=== PATIENT | male | born 1950 | race Caucasian/White ===

== ENCOUNTER 2017-12-29 12:49 | Outpatient (CLI) | payer MEDICARE | END 2017-12-29 12:50 | disposition home or self-care (01) | LOC: BICCT 12:49 | PROVIDERS: ATTEND Family Medicine | DX: R51 Headache (principal) | CPT/HCPCS: 70450 ==

== ENCOUNTER 2018-07-28 13:36 | Outpatient (CLI) | payer MEDICARE ==
--- NOTE | 2018-07-28 15:03 | MRI ---
FExam: MRI cervical spine without contrast HISTORY: Spondylosis, cervical region. Neck pain, times many years. COMPARISON: None FINDINGS: Appropriate T1 marrow signal intensity of the cervical vertebra. Cervical spine vertebral body heigh t is maintained. No fracture. No significant STIR hyperintensity to suggest vertebral body edema or l igamentous injury Visualized brain parenchyma, cervical medullary junction, cervical cord and the upper thoracic cord a re normal size and signal intensity C2-C3: No significant central canal stenosis or neural foraminal narrowing C3-C4: Minimal disc osteophyte complex. No significant central canal stenosis or neural foraminal ricardo rowing.. C4-C5: Broad-based disc osteophyte complex abuts the thecal sac. Mild deformity of the ventral thecal sac and ventral cord. Mild central canal stenosis. Mild right foraminal narrowing due to uncovertebr al hypertrophy. Left neural foramen is patent. C5-C6: Broad-based disc osteophyte complex with a central component. Ventral subarachnoid space is ef faced. Mild central canal stenosis. Bilateral uncovertebral hypertrophy result in mild to moderate ri ght and left foraminal narrowing. C6-C7: No significant central canal stenosis. Bilateral uncovertebral hypertrophy results in mild to moderate bilateral foraminal narrowing. C7-T1: No significant central canal stenosis or neural foraminal narrowing. T2 hyperintensities in th e right and left neural foramina likely represent perineural sleeve cysts. IMPRESSION: 1. Multilevel degenerative disc disease without high-grade central canal stenosis. 2. Multilevel neural foraminal narrowing as described above.
--- NOTE | 2018-07-28 16:16 | MRI ---
LUMBAR SPINE WITHOUT CONTRAST: 07/28/18 INDICATION: History of spondylosis of the lumbar spine with low back pain. COMPARISON: Prior CT lumbar spine dated 09/23/12. FINDINGS: There is postsurgical change of a laminectomy at L4. The visualized retroperitoneum and paravertebral soft tissues appear within normal limits. Bone marrow signal intensity appears within normal limits. There is moderate loss of normal disc spac e height at L4-5. There is mild loss of normal disc space heights at L3-4 and L5-S1. The conus seems to terminate at T12. At L5-S1, there is mild facet joint degenerative change but not appreciable central canal or neural f oraminal narrowing. At L4-5, there is a broad based disc osteophyte complex without appreciable central canal or neural f oraminal narrowing. At L3-4, there is a broad based disc bulge. The broad based bulge induces moderate to severe right an d mild left lateral recess narrowing. There is potential for impingement of the traversing right L4 n erve root on image 22 of series 16 and image 10 of series 4. At L2-3, there is a broad based bulge and facet hypertrophy with no appreciable central canal or neur al foraminal narrowing. At L1-2, there is no appreciable central canal or neural foraminal narrowing. At T12-L1, there is a broad based disc bulge with no appreciable central canal or neural foraminal na rrowing. IMPRESSION: 1. Broad based bulge causing moderate to severe right and mild left lateral recess narrowing at L3-L4. There is potential for impingement of the traversing right L4 nerve root. 2. Postoperative change lumbar spine consistent with laminectomies at L4. 3. Multilevel lumbar spondylosis. POS: [facility]
== END 2018-07-28 13:37 | disposition home or self-care (01) ==
LOC: BICMRI 13:36
PROVIDERS: ATTEND Family Medicine
DX: M47.812 Spondylosis without myelopathy or radiculopathy, cervical region (principal); M47.816 Spondylosis without myelopathy or radiculopathy, lumbar region; M51.26 Other intervertebral disc displacement, lumbar region; M50.30 Other cervical disc degeneration, unspecified cervical region; M48.02 Spinal stenosis, cervical region; Z98.890 Other specified postprocedural states
CPT/HCPCS: 72141; 72148

== ENCOUNTER 2018-12-08 21:26 | Inpatient (IN) | payer MEDICARE ==
[2018-12-09 00:36] VITALS: BMI 23.9
[2018-12-09] MEDS ORDERED: diphenhydrAMINE 25 MG CAP PO SCH (01:30)
[2018-12-09] MEDS ORDERED: Ondansetron PF 4 MG/2 ML Vial IVP PRN (10:38)
[2018-12-09] MEDS ORDERED: Acetaminophen 325 MG TAB PO PRN (10:38)
[2018-12-09] MEDS ORDERED: Ondansetron ODT 4 MG TAB PO PRN (10:38)
[2018-12-09] MEDS ORDERED: Aspirin 325 mg Enteric Coated Tablet PO SCH (10:45)
--- NOTE | 2018-12-09 11:37 | HP ---
PRIMARY CARE PHYSICIAN: No PCP. CHIEF COMPLAINT: Acute right-sided upper limb dysfunction. HISTORY OF PRESENT ILLNESS: A 68-year-old male with known history of glaucoma and lumbar spondylosis, status post surgery associated with right footdrop, admitted on a transfer from [place] ER for evaluation and treatment of right-sided upper limb weakness. The patient reportedly developed intermittent dizziness and gait instability about a week ago, which was followed by acute onset of right-sided weakness and apraxia on the day of presentation, December 08, 2018. The patient reportedly has been feeling weak and dizzy with near syncope about a week, but yesterday morning, he reported having difficulty using his hand to drink his coffee, hence he presented to the emergency room in [place]. Evaluation there with CT scan of the abdomen as well as CT angio of the head were unremarkable and he was transferred over for further evaluation and treatment. He reports improvement in the function of both right upper and lower limbs. He also continued to have dizziness, but he reports that it is better. On further questioning, he reports a history of ringing sensation in both ears as well as prior ear discharge. There is no history of headache, nausea, vomiting, chest pain, palpitations, fall, leg swelling, dysuria, hematuria, or abdominal pain. PAST MEDICAL HISTORY: 1. Lumbar spondylosis. 2. Right footdrop. 3. Glaucoma. PAST SURGICAL HISTORY: 1. Cholecystectomy. 2. Removal of left eye. 3. Lumbar surgery. FAMILY HISTORY: Reviewed, but noncontributory. SOCIAL HISTORY: The patient lives with spouse. He is now retired. He is right-handed. The patient drinks occasionally. He is a former smoker, but quit several years ago. He denied recreational drug use. ALLERGIES: NO KNOWN DRUG ALLERGIES REPORTED. HOME MEDICATIONS: 1. Diphenhydramine 25 mg q.p.m. 2. Latanoprost eye drops. 3. Timolol eye drops. REVIEW OF SYSTEMS: A 12-point review of system performed was negative other than pertinent positives and negatives included in the history of present illness. PHYSICAL EXAMINATION: VITAL SIGNS: Initial vitals on presentation to the ER in [place] showed blood pressure of 157/84, pulse of 52, respiratory rate of 20, temperature of 97.3, and SpO2 of 97% on room air. Current vitals showed temperature 97.6, pulse 51, respiratory rate 18, SpO2 of 95% on room air, blood pressure 117/66. GENERAL: Elderly male, in no distress. Afebrile. Anicteric. Acyanotic. HEENT: Normocephalic, atraumatic. Right pupil is reacting to light. Left, artificial eye prosthesis noted. Face is symmetrical. NECK: Supple. Nontender with full range of motion. No masses or lymphadenopathy appreciated. CARDIOVASCULAR: Regular, but bradycardic. Normal heart sounds one and two with no obvious murmur appreciated. RESPIRATORY: Good air entry bilaterally with no crackle or rhonchi or use of accessory muscles. GASTROINTESTINAL: Full, soft, nontender, nondistended with normal bowel sounds. EXTREMITIES: Grossly normal looking atraumatic with no edema or erythema. Distal pulses are palpable. CENTRAL NERVOUS SYSTEM: Conscious, alert, oriented x3 with appropriate mental status. Cranial nerves 2 through 12 are grossly intact. The patient moves all extremities. There is no pronator drift or lower extremity drift. Right footdrop noted. Sensation is grossly intact. The patient is ambulant with mild footdrop gait. DIAGNOSTIC DATA: CBC performed on December 08, showed WBC count of 5.6, hemoglobin of 16.9, MCV of 95.3, platelet of 204. CMP performed on December 08, showed sodium 143, potassium 4.3, chloride 107, CO2 26, BUN 12, creatinine 1.04, glucose 99, calcium 9.2, total bilirubin 0.8, AST 17, ALT 18, alkaline phosphatase 62, total protein 7.0, albumin 4.0, globulin 3.0. Cardiac markers performed on December 08, 2018, showed initial troponin of 0.010, and BNP of 17.7. Urinalysis performed on December 08, showed yellow clear urine with pH of 6.0, specific gravity of 1.015, negative protein, glucose, ketone, blood, nitrite, bilirubin, and leukocyte esterase. CT scan of the brain of December 08, 2018, showed no acute intracranial abnormalities. Ventricular and cisternal system shows some mild atrophy, but there was no intracerebral hemorrhage or extra-axial fluid collection. Mastoid air cells and visualized sinuses are clear and left ocular prosthesis was noted. Chest x-ray performed on December 08, showed no acute cardiopulmonary process. CT scan of the [place] of [place] showed unremarkable CT angiography of the head with no hemodynamically significant stenosis. There are atherosclerotic changes in the cavernous portions of both internal carotid arteries. However, the anterior and middle cerebral arteries and their branches appear unremarkable with no thrombosis identified. The vertebrobasilar system is grossly unremarkable as well. ASSESSMENT: 1. Acute onset of right lower extremity weakness and apraxia: Improving, but not yet to baseline. 2. Intermittent dizziness: Vestibular disturbance is a concern given history of tinnitus and ear problems. CT scan of the brain showed clear mastoid air cells. 3. Right footdrop. Due to nerve damage from prior lumbar spondylosis. 4. Chronic tinnitus. 5. Presumed transient ischemic attack. 6. Rule out acute cerebrovascular accident. PLAN: 1. We will get MRI of the brain. 2. We will also get echocardiogram and carotid Dopplers. 3. We will start the patient on aspirin and statin. 4. PT/OT will be requested given physical deconditioning. 5. We will consult Neurology. 6. DVT prophylaxis with Lovenox will be provided. 7. The patient wants to be full code. Spouse is the surrogate decision maker. Job ID: [id number]
[2018-12-09] MEDS ORDERED: ALPRAZolam 0.25 MG TAB PO PRN (14:27)
--- NOTE | 2018-12-09 16:39 | MRI ---
MRI Brain WO Con History: TIA Comparison: CT brain prior day Findings: On the diffusion weighted imaging sequence there is acute infarction within the left middle jaime at the basilar part of the jaime. This is confirmed on the ADC map. No hemorrhage. No midline shift. No mass effect. Normal signal of the clivus marrow. Left globe prosthesis. Mild microvascular ischemic changes. Impression: Small left acute pontine infarction.
[2018-12-09] MEDS: Atorvastatin Calcium 40 MG TAB PO SCH (20:17)
[2018-12-09] MEDS: Famotidine 20 MG TAB PO SCH (20:17)
[2018-12-09] MEDS ORDERED: Famotidine/PF 20 mg/2ml Vial SLOW IVP SCH (21:00)
[2018-12-09] MEDS ORDERED: HYDROcodone/Acetaminophen 5/325 mg Tablet PO SCH (21:45)
[2018-12-09] MEDS: diphenhydrAMINE 25 MG CAP PO PRN (21:55)
--- NOTE | 2018-12-10 01:08 | CON ---
DATE OF CONSULTATION: 12/09/2018 CONSULTING PHYSICIAN: Hospitalist Services. IMPRESSION: Pontine stroke with transient right-sided weakness. PLAN: 1. Start an aspirin and a statin as you have undertaken. 2. Echocardiogram. HISTORY OF PRESENT ILLNESS: Mr. Morris is a 68-year-old gentleman with no past history. Over the last few days, he has been unusually fatigued. He started getting some dizziness and then lastly developed some right-sided weakness and clumsiness as he was trying to walk and decided to come in for evaluation. His initial CT and CT angiogram were all unremarkable. His lab work was all in normal range. His followup MRI showed a small pontine infarct. He has never had any stroke symptoms in the past. He has no stroke or vascular risk factors. PAST MEDICAL HISTORY: Otherwise negative. ALLERGIES: NONE. SOCIAL HISTORY: No tobacco use. He is . FAMILY HISTORY: Noncontributory. REVIEW OF SYSTEMS: Ten-system review of systems is, otherwise, negative. PHYSICAL EXAMINATION: GENERAL: He is a healthy-appearing elderly gentleman, in no distress. VITAL SIGNS: Stable. He is afebrile. HEENT: Pupils are equal and reactive. Conjunctivae clear. Oropharynx clear. NECK: Supple. EXTREMITIES: No cyanosis or edema. NEUROLOGIC: He is alert and cooperative. Speech is fluent and clear. Cranial nerves were intact. Motor exam showed good strength bilaterally. There was no fix or drift. No tremor or dysmetria is present. Sensations intact to touch. Can walk independently. SUMMARY: Elderly male with small vessel stroke. I agree with current treatment plan and workup. Symptoms seem to have resolved. Job ID: [id number]
[2018-12-10 04:41] LABS: Anion Gap 10 mmol/L (10-20); BUN (Urea Nitrogen) 16 mg/dL (8.4-25.7); Calc. Creatinine Clearance 84 mL/min (70-130); Calcium 9.3 mg/dL (7.8-10.44); Carbon Dioxide 25 mmol/L (23-31); Cardiac Risk 4.2 (Less than 4.5); Chloride 108 mmol/L (98-107); Cholesterol 227 mg/dl (< 200 Desired); Estimated GFR-MDRD 76; Glucose 96 mg/dL (80-115); HDL Cholesterol 54 mg/dL (>60 Neg Risk); LDL Cholesterol, Calculated 151 mg/dL; Potassium 3.5 mmol/L (3.5-5.1); Sodium 139 mmol/L (136-145); Triglycerides 112 mg/dL (Less than 150)
--- NOTE | 2018-12-10 09:18 | ULT ---
ULTRASOUND CAROTID DOPPLER: History: TIA Comparison: None. FINDINGS: No elevated peak systolic velocities within the internal carotid arteries. Antegrade flow both verteb ral arteries. IMPRESSION: No hemodynamically significant stenosis. POS: [facility]
[2018-12-10] MEDS: Famotidine 20 MG TAB PO SCH ×2 (09:20→20:17)
[2018-12-10] MEDS: Enoxaparin Sodium 40 MG/0.4 ML SYRINGE SC SCH (09:21)
[2018-12-10] MEDS ORDERED: Aspirin 325 MG TAB PO SCH (12:45)
[2018-12-10] MEDS: HYDROcodone/Acetaminophen 5/325 mg Tablet PO PRN ×2 (12:45→20:16)
--- NOTE | 2018-12-10 19:21 | PDOC.HOSPP ---
- Subjective Encounter Date: 12/10/18 Encounter Time: 15:20 Subjective: 68 y/o male admitted with right sided apraxia and dizziness. Found to have acute pontine stroke. Apraxia and dizziness are better. No new problem. - Objective Vital Signs & Weight: Vital Signs (12 hours) Temp Pulse Resp BP Pulse Ox 12/10/18 15:31 98.3 F 52 L 16 96/55 L 96 12/10/18 12:00 97.7 F 59 L 16 107/63 93 L 12/10/18 08:00 97.7 F 54 L 16 138/54 L 93 L Weight Weight 181 lb 8 oz I&O: 12/09/18 12/10/18 12/11/18 06:59 06:59 06:59 Intake Total 530 874 9896 Balance 798 904 4347 Result Diagrams: 12/10/18 04:02 ROS - Medication Medications: Active Medications Generic Name Dose Route Start Last Admin Trade Name Freq PRN Reason Stop Dose Admin Hydrocodone Bitart/Acetaminophen 1 tab 12/10/18 12:32 12/10/18 12:45 [place] 5/325 PO 1 tab Q6H PRN Administration Pain Atorvastatin Calcium 40 mg 12/09/18 21:00 12/09/18 20:17 Lipitor PO 40 mg HS CL Administration Diphenhydramine HCl 25 mg 12/09/18 21:37 12/09/18 21:55 Benadryl PO 25 mg HSPRN PRN Administration Itching & Insomnia Enoxaparin Sodium 40 mg 12/10/18 09:00 12/10/18 09:21 Lovenox SC 40 mg 0900 CL Administration Famotidine 20 mg 12/09/18 21:00 12/10/18 09:20 Pepcid PO 20 mg BID CL Administration - Exam awake alert ENT: normocephalic atraumatic, moist mucosa Neck: supple Heart: RRR Respiratory: no wheezes, no rales, no ronchi Gastrointestinal: soft, non-tender, non-distended, normal bowel sounds Extremities: no cyanosis, no edema Neurological: CN's grossly intact, no new deficit Neurological - other findings: chronic left foot drop noted. ambulant Hosp A/P (1) Pontine artery occlusion Code(s): I65.8 - OCCLUSION AND STENOSIS OF OTHER PRECEREBRAL ARTERIES Status: Acute (2) Left foot drop Code(s): M21.372 - FOOT DROP, LEFT FOOT Status: Acute (3) Dizziness Code(s): R42 - DIZZINESS AND GIDDINESS Status: Acute (4) Apraxia Code(s): R48.2 - APRAXIA Status: Acute - Plan Continue PT/OT. Await Echo Continue ASA and statin.
[2018-12-10] MEDS: diphenhydrAMINE 25 MG CAP PO PRN (20:15)
[2018-12-10] MEDS: Atorvastatin Calcium 40 MG TAB PO SCH (20:17)
[2018-12-11 07:48] VITALS: BP 109/61; TEMP 98.2
[2018-12-11] MEDS ORDERED: Aspirin 325 MG TAB PO SCH (09:00)
[2018-12-11] MEDS: Enoxaparin Sodium 40 MG/0.4 ML SYRINGE SC SCH (09:32)
[2018-12-11] MEDS: Famotidine 20 MG TAB PO SCH (09:32)
== END 2018-12-11 10:17 | disposition home or self-care (01) | DRG 65 ==
LOC: ERS 21:26 → 2NO 23:11 → OBSVTOIN 12-09 13:40 → 2SE 12-09 17:25
PROVIDERS: ADMIT Family Medicine; ATTEND Family Medicine
DX: I63.29 Cerebral infarction due to unspecified occlusion or stenosis of other precerebral arteries (principal); G81.91 Hemiplegia, unspecified affecting right dominant side; R48.2 Apraxia; R42 Dizziness and giddiness; M21.372 Foot drop, left foot; M47.896 Other spondylosis, lumbar region; H93.19 Tinnitus, unspecified ear; H40.9 Unspecified glaucoma; Z90.49 Acquired absence of other specified parts of digestive tract
CPT/HCPCS: 36415; 70551; 80048; 80061; 93306; 93880; 99285; J1650; Q0163

== ENCOUNTER 2019-01-27 07:34 | Outpatient (CLI) | payer MEDICARE ==
--- NOTE | 2019-01-27 09:13 | MRI ---
BRAIN MRI NONCONTRAST: COMPARISON: 12/09/2018. INDICATION: History of CVA, stroke. FINDINGS: There is a small recent posterior right paramedian pontine infarction. Cavitary lacunar infarction o f the left paramedian jaime is present. There is mild chronic ischemic disease of the cerebral white matter. No hemorrhagic susceptibility is present, intracranially. No mass effect, midline shift, or ventriculomegaly. Mild mucosal thickening of the paranasal sinuses. Left ocular prosthesis is note d. IMPRESSION: 1. Interval recent right paramedian pontine infarction. 2. Cavitary lacunar infarction of the left paramedian jaime. 3. Mild chronic microvascular ischemic disease of the cerebral white matter. POS: [facility]
== END 2019-01-27 07:35 | disposition home or self-care (01) ==
LOC: TBSIIMAG 07:34
PROVIDERS: ATTEND Nurse Practitioner Family
DX: I63.9 Cerebral infarction, unspecified (principal); R42 Dizziness and giddiness; R90.82 White matter disease, unspecified; I67.82 Cerebral ischemia
CPT/HCPCS: 70551

== ENCOUNTER 2019-01-28 19:13 | Observation (INO) | payer MEDICARE ==
--- NOTE | 2019-01-28 19:44 | CT ---
CT head without contrast: Multiple axial tomograms obtained through the head without IV enhancement. INDICATIONS: Stroke protocol COMPARISON: MRI brain 01/27/2019. That exam showed old left pontine infarct and acute or subacute righ t pontine infarct. FINDINGS: Ventricles have normal size and position. No evidence of intracranial mass, hemorrhage, edema, or infarct. Lucency in the left jaime at the site of the old pontine infarct noted on MRI. The small right jaime infarct noted on MRI is not apparent by CT. Visualized sinuses and mastoids appear clear. Bony calvarium appears unremarkable. IMPRESSION: No acute finding Findings relayed to Dr. Stokes at 7:41 PM
[2019-01-28 19:56] LABS: #Basophils 0.1 thou/uL (0.0-0.2); #Eosinphils 0.2 thou/uL (0.0-0.7); #Lymphocytes 2.3 thou/uL (1.20-3.40); #Monocytes 0.4 thou/uL (0.11-0.59); #Neutrophils 3.3 thou/uL (1.40-6.50); %Basophils 1.2 % (0.0-1.0); %Eosinophils 2.8 % (0.0-10.0); %Lymphocytes 36.1 % (21.0-51.0); %Monocytes 6.7 % (0.0-10.0); %Neutrophils 53.1 % (42.0-75.0); Hemoglobin 16.3 g/dL (14.0-18.0); Mean Corpuscular HGB CONC 33.6 g/dL (32.0-36.0); Mean Corpuscular Hemoglobin 33.4 pg (27.0-31.0); Mean Corpuscular Volume 99.2 fL (78.0-98.0); Mean Platelet Volume 9.1 fL (7.4-10.4); Platelet Count 177 thou/uL (130-400); RBC Distribution Width 12.3 % (11.5-14.5); Red Blood Cell (RBC) Count 4.88 mill/uL (4.70-6.10); White Blood Cell (WBC) Count 6.3 thou/uL (4.8-10.8)
[2019-01-28 20:05] LABS: Prothrombin Time 13.3 SEC (12.0-14.7)
[2019-01-28 20:15] LABS: Anion Gap 10 mmol/L (10-20); BUN (Urea Nitrogen) 11 mg/dL (8.4-25.7); Calc. Creatinine Clearance 0 mL/min (70-130); Calcium 8.6 mg/dL (7.8-10.44); Carbon Dioxide 28 mmol/L (23-31); Chloride 106 mmol/L (98-107); Estimated GFR-MDRD 79; Glucose 89 mg/dL (80-115); Potassium 3.9 mmol/L (3.5-5.1); Sodium 140 mmol/L (136-145)
[2019-01-29] MEDS ORDERED: Atorvastatin Calcium 40 MG TAB PO SCH ×2 (01:00→21:00)
[2019-01-29] MEDS ORDERED: Acetaminophen 325 MG TAB PO PRN (01:05)
[2019-01-29] MEDS ORDERED: Acetaminophen 650 MG Suppository PR PRN (01:05)
[2019-01-29] MEDS ORDERED: Ondansetron ODT 4 MG TAB PO PRN (01:05)
[2019-01-29] MEDS ORDERED: Ondansetron PF 4 MG/2 ML Vial IVP PRN (01:05)
[2019-01-29] MEDS ORDERED: Acetaminophen 325 MG TAB ONE (02:34)
[2019-01-29] MEDS: Acetaminophen 325 MG TAB PO PRN ×2 (02:36→08:16)
[2019-01-29 03:26] LABS: #Basophils 0.1 thou/uL (0.0-0.2); #Eosinphils 0.3 thou/uL (0.0-0.7); #Lymphocytes 3.1 thou/uL (1.20-3.40); #Monocytes 0.6 thou/uL (0.11-0.59); %Eosinophils 3.7 % (0.0-10.0); %Lymphocytes 38.5 % (21.0-51.0); %Monocytes 7.6 % (0.0-10.0); %Neutrophils 49.2 % (42.0-75.0); Hemoglobin 15.9 g/dL (14.0-18.0); Mean Corpuscular HGB CONC 33.6 g/dL (32.0-36.0); Mean Corpuscular Hemoglobin 33.3 pg (27.0-31.0); Mean Corpuscular Volume 99.2 fL (78.0-98.0); Mean Platelet Volume 9.2 fL (7.4-10.4); Platelet Count 160 thou/uL (130-400); RBC Distribution Width 12.3 % (11.5-14.5); Red Blood Cell (RBC) Count 4.79 mill/uL (4.70-6.10); White Blood Cell (WBC) Count 8.1 thou/uL (4.8-10.8)
[2019-01-29 03:45] LABS: Anion Gap 11 mmol/L (10-20); BUN (Urea Nitrogen) 15 mg/dL (8.4-25.7); Calc. Creatinine Clearance 0 mL/min (70-130); Calcium 8.5 mg/dL (7.8-10.44); Carbon Dioxide 22 mmol/L (23-31); Cardiac Risk 2.5 (Less than 4.5); Chloride 111 mmol/L (98-107); Cholesterol 155 mg/dl (< 200 Desired); Estimated GFR-MDRD Greater than 90; Glucose 95 mg/dL (80-115); HDL Cholesterol 62 mg/dL (>60 Neg Risk); LDL Cholesterol, Calculated 82 mg/dL; Potassium 3.9 mmol/L (3.5-5.1); Sodium 140 mmol/L (136-145); Triglycerides 55 mg/dL (Less than 150)
--- NOTE | 2019-01-29 06:48 | HP ---
PRIMARY CARE DOCTOR: Dr. Mag Alcantara. CODE STATUS: Full code. TIME OF EVALUATION: 9:35 a.m. CHIEF COMPLAINT: Vertigo. HISTORY OF PRESENT ILLNESS: This is a 68-year-old male patient with past medical history of glaucoma with blind left eye; no other significant medical problems, came to the hospital after having headache and vertigo. The symptoms started around 5:45, when he was resting with no clear triggers, no alleviating factors. Symptoms were mild to moderate and improved by itself. The patient has had recent workup with MRI and the last one was yesterday and confirmed that has had another stroke. He has been studied by Dr. Braga for this matter and the conclusion had been that the patient might have had some hereditary predisposition for stroke since no other source for it has been identified. REVIEW OF SYSTEMS: CONSTITUTIONAL: No fever, chills, or generalized weakness. RESPIRATORY: No cough, sputum production, or shortness of breath. CARDIOVASCULAR: No chest pain or palpitations. GASTROINTESTINAL: No nausea, vomiting, diarrhea, or abdominal pain. THREADER: The patient had dizziness, vertigo, headache, feeling lightheaded. GENITOURINARY: No burning on urination. EXTREMITIES: No leg swelling. All other systems were reviewed and negative except for the findings mentioned above. PAST MEDICAL HISTORY: As mentioned in HPI. PAST SURGICAL HISTORY: Left eye removal, cholecystectomy. PSYCHIATRIC HISTORY: No previous psych history. SOCIAL HISTORY: The patient drinks socially, but rarely. The patient denies drug use. No smoking history. Lives at home with family. FAMILY HISTORY: Reviewed and noncontributory for current presentation. KNOWN ALLERGIES: No known drug allergies. REPORTED MEDICATIONS: Timolol, latanoprost, , and atorvastatin. PHYSICAL EXAMINATION: VITAL SIGNS: On presentation, blood pressure 150/70 with heart rate 77, respiratory rate was 16. Pain 0/10. Oxygen saturation was 97% on room air. The blood pressure was monitored and the last value was normal. GENERAL APPEARANCE: The patient is alert, oriented, in no acute distress. HEENT: Eyes, normal conjunctivae. Moist oral mucosa. Anicteric. No JVD. RESPIRATORY: Bilateral air entry. No rales or wheezes. Symmetric expansion. CARDIOVASCULAR: Normal rate. Regular rhythm. No murmurs. No gallops. No edema. ABDOMEN: Soft. Normal bowel sounds. MUSCULOSKELETAL: Baseline range of motion and strength. SKIN: Warm. No pallor. No rash. No redness. Capillary refill seems to be intact. NEURO: The patient is alert and oriented. No evidence of any new focal weakness. Physical exam is negative for any findings for stroke. PSYCH: The patient is in good mood. No anxiety. Optimal judgment. DIAGNOSTIC DATA: EKG, the patient has sinus bradycardia at the rate of 56, VA 170, QRS 86, QT corrected 414. Brain CT was done, the patient has no acute findings. LABORATORY DATA: Reviewed. The patient has white count of 6.3, hemoglobin 16.3, MCV 99.2, and platelet count 277. Coagulation was normal. Chemistry, sodium 140, potassium 3.9, chloride 106, carbon dioxide 28, anion gap 10, BUN 11, creatinine 0.95. GFR was normal. Troponin was normal. Lipid panel was normal. ASSESSMENT AND PLAN: The patient will be placed in the hospital with the following medical problems. 1. Possible transient ischemic attack. The patient has vertigo that lasted for 45 seconds and then improved. He reported that he has been studied in the past few days for a stroke and he was found to have a stroke yesterday; therefore, concerned for a new stroke today; however, the symptoms disappeared. We will do a stroke protocol without emergent and we will defer to Neuro for any further workup at this point. 2. Deep venous thrombosis prophylaxis. 3. History of glaucoma. Reconcile home medications. Job ID: [id number]
[2019-01-29 07:50] VITALS: BMI 23.6
[2019-01-29] MEDS ORDERED: Enoxaparin Sodium 40 MG/0.4 ML SYRINGE SC SCH (09:00)
[2019-01-29] MEDS ORDERED: Clopidogrel Bisulfate 75 MG TAB PO SCH (09:00)
[2019-01-29] MEDS ORDERED: Timolol 0.5% Ophth Soln 5 ml Bottle R EYE SCH (09:00)
--- NOTE | 2019-01-29 10:55 | CON ---
DATE OF CONSULTATION: 01/29/2019 CONSULTING PHYSICIAN: Hospitalist Service. HISTORY OF PRESENT ILLNESS: Mr. Morris was seen back in November for a stroke workup. He had some transient dizziness at that time. His workup at that point showed unremarkable carotid arteries and echocardiogram. He was started on aspirin and statin. Unfortunately, developed recurrent vertigo and headache. He had an MRI yesterday, which showed a small pontine infarct that was acute. He has been started on Plavix. He denies any nausea or vomiting. He denies any lateralized weakness or numbness. PHYSICAL EXAMINATION: NEUROLOGIC: On exam, he is alert and appropriate. His speech is fluent and clear. There is no facial asymmetry. His balance and coordination appears unremarkable. He is walking independently. LABORATORY STUDIES: Including a CBC, coags, and chemistry panel were unremarkable. ASSESSMENT AND PLAN: Unfortunately, he has had recurrent symptoms secondary to small vessel disease. I agree with adding Plavix. He appears otherwise neurologically intact. I think he can be discharged. Job ID: [id number]
[2019-01-29 11:55] VITALS: TEMP 97.6
[2019-01-29 13:58] VITALS: BP 158/70
[2019-01-29] MEDS ORDERED: Aspirin 325 MG TAB PO SCH (14:30)
[2019-01-29] MEDS ORDERED: diphenhydrAMINE 25 MG CAP PO SCH (21:00)
[2019-01-29] MEDS ORDERED: Latanoprost 0.005% Ophth Soln 2.5 ml Bottle EA EYE SCH (21:00)
--- NOTE | 2019-01-29 21:46 | DIS ---
DATE OF ADMISSION: 01/28/2019 DATE OF DISCHARGE: 01/29/2019 PRIMARY CARE PROVIDER: Mag Alcantara, STEFF, [facility]- DISCHARGE DIAGNOSIS: Ischemic cerebrovascular accident. CONDITION OF PATIENT ON THE DAY OF DISCHARGE: Stable. I assessed Mr. Morris on the day of discharge. He denies any dizziness. He denies any other complaints. Vital signs are stable. S1 and S2 are heard, regular. Lungs are clear to auscultation bilaterally. CONSULTATIONS DURING THIS HOSPITALIZATION: Neurology, Dr. Braga. FOLLOWUP APPOINTMENTS: The patient is advised to follow up with primary care provider in 3 to 5 days [address] with [address] Braga in 2 to 3 weeks time. DISCHARGE MEDICATIONS: He has been started on Plavix 75 mg daily. Otherwise, no change was made to his pre-admission home medications, which include: 1. Aspirin 325 mg daily. 2. Benadryl 25 mg in the evening. 3. Latanoprost eyedrops. 4. Timolol eyedrops. 5. Lipitor 40 mg at bedtime. HOSPITAL COURSE: Mr. Morris is a pleasant 68-year-old gentleman, who was admitted to [facility] for ischemic cerebrovascular accident on January 28, 2019. MRI of the brain showed recent right paramedian pontine infarction. He was seen by Neurology Service. He was started on Plavix in addition to his aspirin. His symptoms resolved. He is being discharged home in a stable condition. Many thanks for allowing me to participate in your patient's care. Please feel free to contact me with any questions or concerns. DISCHARGE DESTINATION: Home. Job ID: [id number]
--- NOTE | 2019-02-01 17:03 | EKG ---
Test Reason : Blood Pressure : / mmHG Vent. Rate : 056 BPM Atrial Rate : 056 BPM P-R Int : 170 ms QRS Dur : 086 ms QT Int : 430 ms P-R-T Axes : 069 031 051 degrees QTc Int : 414 ms Sinus bradycardia Septal infarct , age undetermined Abnormal ECG Confirmed by TEN GARCIA DO ([id number]), book or script editor LYNDA CHOWDARY ([id number]) on 02/01/2019 5:03:27 PM Referred By: Confirmed By:TEN GARCIA DO
== END 2019-01-29 14:54 | disposition home or self-care (01) ==
LOC: ERS 19:13 → 2SE 21:06 → ERHOLD 23:57 → 2SE 01-29 07:37
PROVIDERS: ADMIT Hospitalist; ATTEND Hospitalist
DX: I63.9 Cerebral infarction, unspecified (principal); H54.7 Unspecified visual loss; H40.9 Unspecified glaucoma; Z79.899 Other long term (current) drug therapy
CPT/HCPCS: 70450; 80048 ×2; 80061; 82962; 84484; 85025 ×2; 85610; 85730; 93005; 97139 ×3; 99285; G0378 ×3; 36415; 36416; J1650